=== PATIENT | male | born 1945 | race Caucasian/White ===

== ENCOUNTER 2020-01-25 08:59 | Emergency (ER) | payer MEDICARE, OTHER, SELFPAY ==
[2020-01-25] VITALS (19 sets, daily range): BP systolic 160–180; BP diastolic 79–113; PULSE 60–75; RESP 7–23; TEMP 35.8; O2SAT 97–99
--- NOTE | ~2020-01-25 | XR_ITS ---
EXAMINATION: XR chest 1V portable DATE: 01/25/2020 09:39 INDICATION: Shortness of breath. TECHNIQUE: A single frontal view of the chest was obtained. COMPARISON: Chest 2 views 10/25/2017, CT abdomen and pelvis 05/04/2016 FINDINGS: The chest demonstrates clear lungs without pneumonia, pleural effusion, or pneumothorax. Th e heart size is normal. IMPRESSION: 1. No acute cardiopulmonary disease. Reviewed, dictated and finalized at location A.
--- NOTE | 2020-01-25 09:08 | ECG_ITS ---
Measurements Intervals [place] Rate: 75 P: MA: 0 QRS: -16 QRSD: 106 T: 1 QT: 392 QTc: 439 Interpretive Statements ATRIAL FIBRILLATION DELAYED PRECORDIAL R/S TRANSITION VOLTAGE CRITERIA FOR LVH BORDERLINE T WAVE ABNORMALITY- INFERIOR LEADS ABNORMAL ECG Electronically Signed On 01-25-2020 10:43:33 CDT by Edwin Griffin D.O.
[2020-01-25 09:25] LABS: Basophils Absolute Auto 0.1 K/mm3 (0.0-0.1); Basophils Percent Auto 1.1 % (0.2-1.2); Eosinophils Absolute Auto 0.3 K/mm3 (0-0.3); Eosinophils Percent Auto 5.3 % (0-4.4); Hemoglobin 15.2 g/dL (14.0-18.0); Immature Granulocyte Absolute 0.06 K/mm3 (0.00-0.031); Immature Granulocyte Percent A 1.1 % (0-0.5); Mean Corpuscular Hemoglobin 30.2 pg (26-34); Mean Corpuscular Volume 91.5 fl (80-100); Mean Platelet Volume 10.8 fl (7.4-10.4); Monocytes Absolute Auto 0.5 K/mm3 (0.1-0.6); Monocytes Percent Auto 9.3 % (2.6-8.5); Neutrophils Absolute Auto 3.3 K/mm3 (1.3-6.7); Neutrophils Percent Auto 58.2 % (45.5-73.1); Platelet Count Result 176 k/mm3 (150-375); Red Blood Count 5.03 M/mm3 (4.6-6.20); Red Cell Distribution Width 12.2 % (11.5-14.5); White Blood Count 5.6 K/mm3 (4.5-10.0)
[2020-01-25 09:36] LABS: Anion Gap 8 mmol/L (8-16); Blood Urea Nitrogen 20 mg/dL (9-20); Calcium 8.9 mg/dL (8.4-10.2); Carbon Dioxide 24 mmol/L (22-30); Chloride 105 mmol/L (98-107); Estimated CRCL calculation 89 ml/min; Estimated Glomerular Filt Rate > 60; Glucose 270 mg/dL (75-110); Sodium 137 mmol/L (137-145)
[2020-01-25] MEDS: SODIUM CHLORIDE 0.9% IV 1,000 ML 999 ML IV CONT (09:38)
[2020-01-25] MEDS: FAMOTIDINE 20 MG/2 ML VIAL IV PUSH (09:38)
--- NOTE | 2020-01-25 10:04 | ED.GENADULT ---
HPI - General Adult General Chief complaint: Weakness Stated complaint: ST, achy, diarrhea Time Seen by Provider: 01/25/20 09:08 Source: patient Mode of arrival: ambulatory Limitations: no limitations History of Present Illness HPI narrative: Patient is a 74-year-old male who presents with 2 days duration of not feeling well patient notes body aches cough productive of green phlegm noting that the cough began today patient notes yesterday he had diarrhea and does still have some mild cramping of the abdomen patient notes he is also has sore throat and congestion. Patient denies known sick contacts. Patient denies fever vomiting nausea rectal bleeding or melena. Patient notes he experiences some mild dyspnea with exertion. Patient denies chest pain and on arrival is in the room in no distress and does not appear on cough Related Data Allergies Allergy/AdvReac Type Severity Reaction Status Date / Time No Known Allergies Allergy Unverified 09/23/19 08:34 [facility] Past Medical History Medical History (Updated 01/25/20 @ 11:24 by Jose Alberto Pat PA-C) Diabetes Elevated lipids Essential hypertension Heart murmur Family History Family History Father Carcinoma of colon, Onset Age: 60 Other Family history of sleep apnea Social History Social History Smoking status: Never smoker Alcohol intake: never Gender identity (if verbalized by the patient): Male Exam Narrative: Exam Narrative: GENERAL: Well-appearing, well-nourished, and in no acute distress. HEAD: Normocephalic, atraumatic. EYES: PERRLA and EOMI. ENT: Nares clear, no rhinorrhea or epistaxis. Mucous membranes moist. NECK: Supple. No adenopathy or masses. CHEST: Clear to auscultation. No respiratory distress. No wheezes rales or rhonchi HEART: Regular rate and rhythm. No murmur heard. Normal peripheral pulses. ABDOMEN: Soft, nontender, nondistended EXTREMITIES: Normal range of motion. No edema. SKIN: Warm, dry, no rash. NEURO: No focal deficits. Alert and oriented x3. PSYCH: Normal mood and affect. Course Course Emergency Course: Patient is a 74-year-old female who presents to emergency department for evaluation of body aches chills sore throat had evaluation no pneumonia no strep pharyngitis negative influenza Covid pending will be sent home patient has normal oxygenation no distress does not appear uncomfortable was hydrated in the emergency department and agrees to self quarantine and follow with his primary care who is Dr. Jain Vital Signs Vital signs: Vital Signs Pulse Rate 72 01/25/20 09:08 Respiratory Rate 7 L 01/25/20 09:08 Blood Pressure 175/113 H 01/25/20 09:08 Pulse Oximetry 99 01/25/20 09:08 Temperature 96.5 F L 01/25/20 09:10 Pulse Rate 62 01/25/20 11:01 Respiratory Rate 19 01/25/20 11:01 Blood Pressure 180/108 H 01/25/20 11:01 Pulse Oximetry 97 01/25/20 11:01 Medical Decision Making MDM Narrative Medical decision making narrative: Patient with likely upper respiratory infection will be discharged home provided with reasons to return felt appropriate for outpatient reevaluation afebrile nontoxic-appearing no distress patient is 2 days into his illness. Vital Signs Vital Signs: Vital Signs Pulse Rate 72 01/25/20 09:08 Respiratory Rate 7 L 01/25/20 09:08 Blood Pressure 175/113 H 01/25/20 09:08 Pulse Oximetry 99 01/25/20 09:08 Temperature 96.5 F L 01/25/20 09:10 Pulse Rate 62 01/25/20 11:01 Respiratory Rate 19 01/25/20 11:01 Blood Pressure 180/108 H 01/25/20 11:01 Pulse Oximetry 97 01/25/20 11:01 Lab Data Result diagrams: 01/25/20 09:20 01/25/20 09:20 Labs: Lab Results 01/25/20 01/25/20 01/25/20 Range/Units 09:20 09:20 09:40 WBC 5.6 (4.5-10.0) K/mm3 RBC 5.03 (4.6-6.20) M/mm3 Hgb 15.2 (14.0-18.0) g/d
[2020-01-25 17:41] LABS: SARS-CoV-2 RNA PCR Negative
== END 2020-01-25 11:35 | disposition home or self-care (01) ==
PROVIDERS: Emergency Medicine Emergency Medical Services; Emergency Provider Emergency Medicine; PCP Emergency Medicine
DX: J06.9 Acute upper respiratory infection, unspecified (principal); Z20.828 Contact with and (suspected) exposure to other viral communicable diseases; E11.9 Type 2 diabetes mellitus without complications; I10 Essential (primary) hypertension; I48.91 Unspecified atrial fibrillation; R94.31 Abnormal electrocardiogram [ECG] [EKG]; Z79.84 Long term (current) use of oral hypoglycemic drugs; Z79.01 Long term (current) use of anticoagulants
CPT/HCPCS: 36415; 71045; 80048; 85025; 87081; 87635; 87804; 87880; 93005; 96361; 96365; 96375; 99284; C9803; J0131; J7030; U0003

== ENCOUNTER 2020-12-30 02:49 | Day surgery (SDC) | payer MEDICARE, OTHER, SELFPAY ==
[2020-12-08 15:15] VITALS: BMI 32.5
--- NOTE | 2020-12-29 20:30 | PM.HPGS ---
History of Present Illness History of Present Illness Consent: Risks, benefits, and alternatives have been discussed and questions answered. Patient agrees to proceed with procedure. Chief complaint: diarrhea Narrative: Beryl Mart is a 75 year old male due for colon cancer screening. his last colonoscopy was 10 years ago. Now he is havng daily diarrhea, with urgency, generally an hour after meal. He has been on Glucophage for 20 years but the bowel issues began this year Review of Systems Review of Systems: All systems reviewed & are unremarkable except as noted in HPI and below PMFSH Past Medical History Medical History Diabetes Diarrhea Elevated lipids Essential hypertension Heart murmur Family History Family History Father Carcinoma of colon, Onset Age: 60 Other Family history of sleep apnea Social History Social History Smoking status: Never smoker Alcohol intake: never Substance use type: does not use Gender identity (if verbalized by the patient): Male Meds Home Medications and Allergies Home Medications Medication Instructions Recorded Confirmed Type blood sugar diagnostic #10 each 03/12/19 12/01/20 Rx rivaroxaban 20 mg tablet 20 mg PO DAILY #90 tablet 12/25/19 12/08/20 Rx simvastatin 40 mg tablet See Rx Instructions .ROUTE 01/17/20 12/08/20 Rx .COMPLEX #90 tablet omega-3 fatty acids 1,000 mg 1,000 mg PO DAILY 03/23/20 12/08/20 History capsule dapagliflozin 5 mg tablet 5 mg PO DAILY #30 tablet 04/20/20 12/08/20 Rx glyburide 5 mg tablet See Rx Instructions .ROUTE 04/25/20 12/08/20 Rx .COMPLEX #360 tablet metformin 1,000 mg tablet 1,000 mg PO BID #180 tablet 04/25/20 12/08/20 Rx mirabegron 25 mg tablet,extended See Rx Instructions .ROUTE 04/25/20 12/08/20 Rx release 24 hr .COMPLEX #90 tablet sitagliptin 100 mg tablet 100 mg PO DAILY #90 tablet 04/25/20 12/08/20 Rx tamsulosin 0.4 mg capsule See Rx Instructions .ROUTE 04/25/20 12/08/20 Rx .COMPLEX #90 cap metoprolol succinate 50 mg See Rx Instructions .ROUTE 08/24/20 12/08/20 Rx tablet,extended release 24 hr .COMPLEX #90 tablet metoprolol succinate 25 mg 25 mg PO DAILY #30 tablet 08/25/20 12/08/20 Rx tablet,extended release 24 hr metoprolol succinate 25 mg 25 mg PO DAILY #90 tablet 08/25/20 12/08/20 Rx tablet,extended release 24 hr telmisartan 80 mg tablet 40 mg PO DAILY #90 tablet 08/29/20 12/08/20 Rx Allergies Allergy/AdvReac Type Severity Reaction Status Date / Time epinephrine Allergy Other Verified 12/30/20 09:37 Exam Resp: Auscultation: clear to auscultation bilaterally Cardio: Rate: regular rate Rhythm: regular rhythm GI: GI Palp: Yes Soft to palpation and No Tenderness to palpation present (GI) Assessment and Plan Assessment and plan (1) Colon cancer screening: Code(s): Z12.11 - Encounter for screening for malignant neoplasm of colon Status: Acute Assessment and Plan: Colonoscopy with possible biopsy or polypectomy or cautery or injection of substances.
[2020-12-30 09:39] VITALS: BP 173/71; PULSE 91; RESP 18; TEMP 35.8; O2SAT 97; BMI 31.8
[2020-12-30] MEDS: LACTATED RINGERS 1,000 ML 150 ML IV CONT (09:51)
[2020-12-30 09:55] LABS: Glucose Point of Care 187 mg/dl (65-105)
--- NOTE | 2020-12-30 09:59 | WPDANESEPPF ---
Anes - Initial Pre Proc Eval Procedure: Operation Date: 12/30/20 10:45 Proposed Procedures p Colonoscopy - Salty Krueger MD Date/Time: 12/30/20 09:59 Surgeon: Salty Krueger MD Pre Op Diagnosis: diarrhea Patient Data Age: 75 Gender: M Height: 1.83 m Weight: 106.6 kg Last Vital Signs Temp 96.5 F L 12/30/20 09:39 Pulse 91 12/30/20 09:39 Resp 18 12/30/20 09:39 BP 173/71 H 12/30/20 09:39 Pulse Ox 97 12/30/20 09:39 Allergies Allergy/AdvReac Type Severity Reaction Status Date / Time epinephrine Allergy Other Verified 12/30/20 09:37 Home Medications Medication Instructions Recorded Confirmed Type blood sugar diagnostic #10 each 03/12/19 12/01/20 Rx rivaroxaban 20 mg tablet 20 mg PO DAILY #90 tablet 12/25/19 12/08/20 Rx simvastatin 40 mg tablet See Rx Instructions .ROUTE 01/17/20 12/08/20 Rx .COMPLEX #90 tablet omega-3 fatty acids 1,000 mg 1,000 mg PO DAILY 03/23/20 12/08/20 History capsule dapagliflozin 5 mg tablet 5 mg PO DAILY #30 tablet 04/20/20 12/08/20 Rx glyburide 5 mg tablet See Rx Instructions .ROUTE 04/25/20 12/08/20 Rx .COMPLEX #360 tablet metformin 1,000 mg tablet 1,000 mg PO BID #180 tablet 04/25/20 12/08/20 Rx mirabegron 25 mg tablet,extended See Rx Instructions .ROUTE 04/25/20 12/08/20 Rx release 24 hr .COMPLEX #90 tablet sitagliptin 100 mg tablet 100 mg PO DAILY #90 tablet 04/25/20 12/08/20 Rx tamsulosin 0.4 mg capsule See Rx Instructions .ROUTE 04/25/20 12/08/20 Rx .COMPLEX #90 cap metoprolol succinate 50 mg See Rx Instructions .ROUTE 08/24/20 12/08/20 Rx tablet,extended release 24 hr .COMPLEX #90 tablet metoprolol succinate 25 mg 25 mg PO DAILY #30 tablet 08/25/20 12/08/20 Rx tablet,extended release 24 hr metoprolol succinate 25 mg 25 mg PO DAILY #90 tablet 08/25/20 12/08/20 Rx tablet,extended release 24 hr telmisartan 80 mg tablet 40 mg PO DAILY #90 tablet 08/29/20 12/08/20 Rx Laboratory Tests 12/30/20 09:53 POC Capillary Glucose 187 mg/dl H mg/dl (65-105) Patient hx anesthesia problems: none Family hx anesthesia problems: none Results Review: All pre-operative results and documents have been reviewed as part of the pre-operative evaluation. [facility] Past Medical History Medical History (Updated 12/29/20 @ 20:31 by Salty Krueger MD) Diabetes Diarrhea Elevated lipids Essential hypertension Heart murmur Family History Family History Father Carcinoma of colon, Onset Age: 60 Other Family history of sleep apnea Social History Social History Smoking status: Never smoker Alcohol intake: never Substance use type: does not use Gender identity (if verbalized by the patient): Male Anes - Eval Final PreProcedure Day of Procedure 12/30/20 09:59 Patient weight: obese Heart: regular rate and rhythm Lungs: clear to auscultation Airway: Mallampati scale class II Neurological: alert and oriented Last oral intake: >/= 8 hours ASA classification: III Emergent: no Anesthetic plan: proceed Anesthesia type and monitoring: general GIVS and standard monitoring Results Review: All pre-operative results and documents have been reviewed as part of the pre-operative evaluation. Informed Consent: The patient's anesthetic plan and its attendant risks and benefits were discussed with the patient/family/POA. Questions were solicited and answers provided to the satisfaction of the patient/family/POA.
[2020-12-30 10:54] VITALS: BP 110/69; PULSE 77; RESP 20; O2SAT 99
[2020-12-30 11:04] VITALS: BP 119/67; PULSE 88; RESP 20; O2SAT 99
[2020-12-30 11:14] VITALS: BP 127/70; PULSE 86; RESP 20; O2SAT 100
== END 2020-12-30 11:30 | disposition home or self-care (01) ==
PROVIDERS: PCP Emergency Medicine; Visit Provider Internal Medicine Gastroenterology
PROC: 0DJD8ZZ Inspection of Lower Intestinal Tract, Via Natural or Artificial Opening Endoscopic (ICD-10-PCS; CPT 45378; principal; 2020-12-30 10:45)
DX: Z12.11 Encounter for screening for malignant neoplasm of colon (principal); K57.30 Diverticulosis of large intestine without perforation or abscess without bleeding; R19.7 Diarrhea, unspecified; I10 Essential (primary) hypertension; E11.9 Type 2 diabetes mellitus without complications; E78.5 Hyperlipidemia, unspecified; R01.1 Cardiac murmur, unspecified; Z80.0 Family history of malignant neoplasm of digestive organs
CPT/HCPCS: 45380; 82948; 88305; J2704; J7120